=== PATIENT | male | born 1970 | race Caucasian/White ===

== ENCOUNTER 2017-11-29 20:52 | Emergency (ER) | payer MEDICAID ==
--- NOTE | 2017-11-29 21:47 | XRAY Preliminary Report ---
Exam: XR CHEST 2 VIEW X-RAY IMPRESSION: 1. No acute pulmonary process. [facility] SITE ID: [id number]
--- NOTE | 2017-11-29 22:14 | XRAY Report ---
EXAM: CHEST RADIOGRAPHY EXAM DATE: 11/29/2017 09:40 PM. CLINICAL HISTORY: Fever cough. COMPARISON: None. TECHNIQUE: 2 views. FINDINGS: Lungs/Pleura: No focal opacities evident. No pleural effusion. No pneumothorax. Normal volumes. Mediastinum: Heart and mediastinal contours are unremarkable. Other: None. IMPRESSION: 1. No acute pulmonary process. [facility] Referring Provider Line: [phone] SITE ID: [id number]
[2017-11-29] MEDS ORDERED: predniSONE 20 MG TABLET PO STA (22:28)
[2017-11-29] MEDS ORDERED: AZITHROMYCIN 250 MG TABLET PO STA (22:28)
[2017-11-29] MEDS ORDERED: BENZONATATE 100 MG CAPSULE PO STA (22:29)
[2017-11-29] MEDS ORDERED: guaiFENesin/DEXTROMETHORPHAN 10 ML UDC PO STA (22:29)
--- NOTE | 2017-11-29 22:31 | ED Physician Documentation ---
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 denies: Abdominal Pain : denies: Incontinent Neurologic: reports: Numbness. denies: Focal weakness Immunocompromised: denies: Immunocompromised PD PAST MEDICAL HISTORY - Past Medical History Past Medical History: Yes Cardiovascular: Hypertension Endocrine/Autoimmune: Type 2 diabetes Psych: Depression - Past Surgical History Past Surgical History: No - Present Medications Home Medications: Ambulatory Orders Medication Instructions Recorded Confirmed Bupropion HCl [Bupropion HCl Sr] 150 mg PO BID 04/12/14 04/12/14 Ciproflox/Dexameth Otic Drops 4 drops OT BID #1 bottle 04/12/14 [Ciprodex] Levofloxacin [Levaquin] 750 mg PO DAILY 04/12/14 04/12/14 Levofloxacin [Levaquin] 750 mg PO DAILY #7 tablet 04/12/14 Naproxen 500 mg PO BID PRN 04/12/14 04/12/14 Oxycodone HCl/Acetaminophen PRN 04/12/14 04/12/14 [Percocet 5-325 mg Tablet] Oxycodone HCl/Acetaminophen 1 - 2 each PO Q6H PRN #20 tablet 04/12/14 [Percocet 7.5-325 mg Tablet] Simvastatin 20 mg PO DAILY 04/12/14 04/12/14 Azithromycin [Zithromax] 250 mg PO DAILY #4 tablet 11/29/17 Benzonatate [Tessalon] 100 mg PO TID PRN #20 capsule 11/29/17 guaiFENesin/DEXTROMETHORPHAN 10 ml PO Q6H PRN #120 ml 11/29/17 [Robitussin Dm] predniSONE [Deltasone] 40 mg PO DAILY 3 Days tablet 11/29/17 - Allergies Allergies/Adverse Reactions: Allergies Allergy/AdvReac Type Severity Reaction Status Date / Time Penicillins Allergy Unknown Verified 11/29/17 21:04 - Social History Does the pt smoke?: No Smoking Status: Never smoker Does the pt drink ETOH?: No Does the pt have substance abuse?: Yes - POLST Patient has POLST: No PD ED PE NORMAL - Vitals Vital signs reviewed: Yes - Neck Neck: Supple, no meningeal sign - Cardiac Cardiac: RRR - Respiratory Respiratory: No respiratory distress. No: Other (ronchi [place] R > L) - Abdomen Abdomen: Soft, Non tender - Derm Derm: Normal color - Extremities Extremities: No edema - Neuro Neuro: No motor deficit, Other (some dec sensation lateral L thigh, denies saddle anesthesia, rest of legs nl sensory, foot dorsi plantar knee ext hip flexion 5/5, no clounus, neg SLR) Results - Vitals Vitals: Vital Signs - 24 hr 11/29/17 21:03 Temperature 36.7 C Heart Rate 89 Respiratory 18 Rate Blood Pressure 153/109 H O2 Saturation 95 Oxygen O2 Source Room air - Rads (name of study) CXR Radiology: See rad report (neg) PD MEDICAL DECISION MAKING - ED course ED course: neg CXR but exam very suggestive of gerber - will tx some numbness to lateral thigh and worsening of chronic back pain, may have been aggravated by coughing, is diabetic but careful to use clean needles, blood sugars run about 140, spine s focal bony TTP redness swelling warmth, doubt epidural abscess and MRI not available at this time will rx prednisone for airway issues anyway which help relieve sx, if not pt advised to fup PMD to discuss MRI Departure - Departure Disposition: 01 Home, Self Care Clinical Impression: Paresthesia Pneumonia Qualifiers: Pneumonia type: due to unspecified organism Laterality: right Lung location: unspecified part of lung Qualified Code(s): J18.9 - Pneumonia, unspecified organism Condition: Good Instructions: ED Pneumonia Adult Prescriptions: Azithromycin [Zithromax] 250 mg PO DAILY #4 tablet Benzonatate [Tessalon] 100 mg PO TID PRN #20 capsule PRN Reason: to ease cough guaiFENesin/DEXTROMETHORPHAN [Robitussin Dm] 10 ml PO Q6H PRN #120 ml PRN Reason: Cough predniSONE [Deltasone] 40 mg PO DAILY 3 Days tablet Comments: The xray did not show pneumonia but on exam it certainly sounds like you have a right lung pneumonia so I have prescribed antibiotics as well as steroids to decrease the airway inflammation and cough medications The steroids should also help the numbness in your thigh if it is due to sciatica. If the leg symptoms continue, please follow up with your PMD for consideration of a MRI If the symptoms get worse, especially if you have severe back pain or bilateral leg weakness or are unable to urinate normally, please come back to the ER Also the steroids may cause your blood sugar to run a bit high but should return to normal within a few days And please get your blood pressure rechecked - it was high today
[2017-11-29 22:59] VITALS: BP 140/92
== END 2017-11-29 22:59 | disposition home or self-care (01) ==
LOC: ED 20:52
DX: J18.9 Pneumonia, unspecified organism (principal); R20.2 Paresthesia of skin; I10 Essential (primary) hypertension; E11.9 Type 2 diabetes mellitus without complications
CPT/HCPCS: 71046; 99283; A9270; J7512

== ENCOUNTER 2018-04-10 19:00 | Emergency (ER) | payer MEDICAID ==
[2018-04-10 19:25] LABS: BILIRUBIN,URINE NEGATIVE (NEGATIVE); GLUCOSE, URINE (UA) NEGATIVE (NEGATIVE); KETONES,URINE (UA) NEGATIVE (NEGATIVE); LEUKOCYTE ESTERASE, URINE NEGATIVE (NEGATIVE); NITRITE,URINE NEGATIVE (NEGATIVE); OCCULT BLOOD,URINE NEGATIVE (NEGATIVE); PROTEIN,URINE NEGATIVE (NEGATIVE); UROBILINOGEN,URINE 0.2 (NORMAL) E.U./dL (NORMAL)
[2018-04-10 19:37] LABS: CLARITY,URINE CLEAR (CLEAR)
--- NOTE | 2018-04-10 20:35 | Ultrasound Report ---
Reason: Left testicular pain radiating to left groin Procedure Date: 04/10/2018 Accession Number: [id number] / [id number] Procedure: US - Testicle w/Doppler CPT Code: FULL RESULT: EXAM: SCROTAL ULTRASOUND EXAM DATE: 04/10/2018 08:27 PM. CLINICAL HISTORY: Left testicular pain radiating to left groin. COMPARISON: None. TECHNIQUE: Real-time scanning was performed with static images obtained. Both color-flow and Doppler spectral analysis were utilized. FINDINGS: Right: Testis: 4.5 x 3.0 x 2.3 cm. Normal size and echotexture. No mass, calcification, or abnormal blood flow. Epididymis: 3.1 x 0.8 x 0.4 cm. Normal size and echotexture. No mass or abnormal blood flow. Hydrocele: None. Varicocele: None. Left: Testis: 4.3 x 2.8 x 2.2 cm. Normal size and echotexture. No mass, calcification, or abnormal blood flow. Epididymis: 6.1 x 0.8 x 1.1 cm. Given the difficulty of exactly measuring the curvilinear epididymis, note that the volume of the left epididymis approximately 3 times that of the right. There is mild uniform increased vascularity throughout the left epididymis without focal mass lesions. Hydrocele: None. Varicocele: Small. IMPRESSION: 1. No testicular torsion. 2. Enlarged hypervascular left epididymis consistent with epididymitis. 3. Small left varicocele. [facility]
--- NOTE | 2018-04-10 20:43 | ED Physician Documentation ---
PD HPI MALE - Stated complaint Stated Complaint: MALE - Chief complaint Chief Complaint: General - History obtained from History obtained from: Patient - History of Present Illness Timing - onset: Enter time (11:30), Today Timing - details: Gradual onset Pain level now: 4 Similar symptoms before: Has not had sx before Recently seen: Not recently seen Review of Systems Constitutional: reports: Reviewed and negative GI: reports: Reviewed and negative : reports: Testicular pain. denies: Dysuria, Frequency, Testicular mass PD PAST MEDICAL HISTORY - Past Medical History Past Medical History: Yes Cardiovascular: Hypertension Endocrine/Autoimmune: Type 2 diabetes Psych: Depression - Past Surgical History Past Surgical History: No - Present Medications Home Medications: Ambulatory Orders Medication Instructions Recorded Confirmed Bupropion HCl [Bupropion HCl Sr] 150 mg PO BID 04/12/14 04/12/14 Ciproflox/Dexameth Otic Drops 4 drops OT BID #1 bottle 04/12/14 [Ciprodex] Levofloxacin [Levaquin] 750 mg PO DAILY 04/12/14 04/12/14 Levofloxacin [Levaquin] 750 mg PO DAILY #7 tablet 04/12/14 Naproxen 500 mg PO BID PRN 04/12/14 04/12/14 Oxycodone HCl/Acetaminophen PRN 04/12/14 04/12/14 [Percocet 5-325 mg Tablet] Oxycodone HCl/Acetaminophen 1 - 2 each PO Q6H PRN #20 tablet 04/12/14 [Percocet 7.5-325 mg Tablet] Simvastatin 20 mg PO DAILY 04/12/14 04/12/14 Azithromycin [Zithromax] 250 mg PO DAILY #4 tablet 11/29/17 Benzonatate [Tessalon] 100 mg PO TID PRN #20 capsule 11/29/17 guaiFENesin/DEXTROMETHORPHAN 10 ml PO Q6H PRN #120 ml 11/29/17 [Robitussin Dm] predniSONE [Deltasone] 40 mg PO DAILY 3 Days tablet 11/29/17 Levofloxacin [Levaquin] 500 mg PO DAILY #9 tablet 04/10/18 - Allergies Allergies/Adverse Reactions: Allergies Allergy/AdvReac Type Severity Reaction Status Date / Time Penicillins Allergy Unknown Verified 04/10/18 19:07 - Social History Does the pt smoke?: No Smoking Status: Never smoker Does the pt drink ETOH?: No Does the pt have substance abuse?: Yes - POLST Patient has POLST: No PD ED PE NORMAL - Vitals Vital signs reviewed: Yes - General General: Alert and oriented X 3, No acute distress, Well developed/nourished - Abdomen Abdomen: Normal bowel sounds, Soft, Non tender, Non distended - Derm Derm: Normal color, Warm and dry, No rash PD ED PE EXPANDED - Male Male : Normal Exam, Testes descended [place], Normal lie/cremastaric, Tenderness (left testicle, superoposterior). No: Skin lesions, Discharge, Testicular Mass Results - Vitals Vitals: Oxygen O2 Source Room air - Labs Labs: Laboratory Tests 04/10/18 04/10/18 19:12 19:12 Urine Color YELLOW Urine Clarity CLEAR Urine pH 6.0 Ur Specific [place] >=1.030 H Urine Protein NEGATIVE Urine Glucose (UA) NEGATIVE Urine Ketones NEGATIVE Urine Occult Blood NEGATIVE Urine Nitrite NEGATIVE Urine Bilirubin NEGATIVE Urine Urobilinogen 0.2 (NORMAL) Ur Leukocyte Esterase NEGATIVE Ur Microscopic Review NOT INDICATED C.trachomatis RNA (TMA) NOT DETECTED Chlamydia/GC Comment SEE NOTE N.gonorrhoeae RNA (TMA) NOT DETECTED - Rads (name of study) testicular US Radiology: Prelim report reviewed, See rad report PD MEDICAL DECISION MAKING - ED course Complexity details: reviewed results, re-evaluated patient, considered differential, d/w patient - Sepsis Event Vital Signs: Oxygen O2 Source Room air Departure - Departure Disposition: 01 Home, Self Care Clinical Impression: Epididymitis Condition: Good Instructions: ED Epididymitis Prescriptions: Levofloxacin [Levaquin] 500 mg PO DAILY #9 tablet Forms: Activity restrictions Discharge Date/Time: 04/10/18 21:15
[2018-04-10] MEDS ORDERED: levoFLOXacin 250 MG TABLET PO STA (21:00)
[2018-04-10 21:15] VITALS: BP 133/78
== END 2018-04-10 21:15 | disposition home or self-care (01) ==
LOC: ED 19:00
DX: N45.1 Epididymitis (principal); I10 Essential (primary) hypertension; E11.9 Type 2 diabetes mellitus without complications
CPT/HCPCS: 76870; 81003; 87491; 87591; 93975; 99283; A9270; 81001; 87086

== ENCOUNTER 2020-05-03 09:40 | Emergency (ER) | payer MEDICAID ==
[2020-05-03 09:49] VITALS: BP 145/71
[2020-05-03] MEDS ORDERED: SULFAMETH/TRIMETH DS 800/160 MG TABLET PO STA (10:41)
--- NOTE | 2020-05-03 10:43 | ED Physician Documentation ---
History of Present Illness - Stated complaint Stated Complaint: L ARM INJURY - Chief complaint Chief Complaint: General - History obtained from History obtained from: Patient - Additonal information Additional information: Patient comes emergency department complaining of a draining sore on his left inner upper arm. He states this has been going on for about 10 days and has happened before. Patient denies fevers or chills. He states that the wound began to drain yesterday after swelling to the size of a golf ball, and that copious purulent material came out. However, today, the patient has only noticed dark bloody material. He states that he has had many abscesses in the past, but that they usually drain on their own.. No other complaints at this time. Review of Systems Ten Systems: 10 systems reviewed and negative Constitutional: reports: Reviewed and negative. denies: Fever, Chills Eyes: reports: Reviewed and negative Ears: reports: Reviewed and negative Nose: reports: Reviewed and negative Throat: reports: Reviewed and negative Cardiac: reports: Reviewed and negative Respiratory: reports: Reviewed and negative GI: reports: Reviewed and negative : reports: Reviewed and negative Skin: reports: Lesions Musculoskeletal: reports: Reviewed and negative Neurologic: reports: Reviewed and negative Psychiatric: reports: Reviewed and negative Endocrine: reports: Reviewed and negative Immunocompromised: reports: Reviewed and negative PD PAST MEDICAL HISTORY - Past Medical History Cardiovascular: Hypertension Endocrine/Autoimmune: Type 2 diabetes Psych: Depression - Past Surgical History Past Surgical History: No - Present Medications Home Medications: Ambulatory Orders Medication Instructions Recorded Confirmed Ciproflox/Dexameth Otic Drops 4 drops OT BID #1 bottle 04/12/14 [Ciprodex] Levofloxacin [Levaquin] 750 mg PO DAILY 04/12/14 04/12/14 Levofloxacin [Levaquin] 750 mg PO DAILY #7 tablet 04/12/14 Naproxen 500 mg PO BID PRN 04/12/14 04/12/14 Oxycodone HCl/Acetaminophen PRN 04/12/14 04/12/14 [Percocet 5-325 mg Tablet] Oxycodone HCl/Acetaminophen 1 - 2 each PO Q6H PRN #20 tablet 04/12/14 [Percocet 7.5-325 mg Tablet] Simvastatin 20 mg PO DAILY 04/12/14 04/12/14 buPROPion HCl [Bupropion HCl Sr] 150 mg PO BID 04/12/14 04/12/14 Azithromycin [Zithromax] 250 mg PO DAILY #4 tablet 11/29/17 Benzonatate [Tessalon] 100 mg PO TID PRN #20 capsule 11/29/17 guaiFENesin/DEXTROMETHORPHAN 10 ml PO Q6H PRN #120 ml 11/29/17 [Robitussin Dm] predniSONE [Deltasone] 40 mg PO DAILY 3 Days tablet 11/29/17 Levofloxacin [Levaquin] 500 mg PO DAILY #9 tablet 04/10/18 Sulfamethox/Trimeth 800/160 1 each PO BID #14 tablet 05/03/20 [Bactrim Ds 800/160] - Allergies Allergies/Adverse Reactions: Allergies Allergy/AdvReac Type Severity Reaction Status Date / Time Penicillins Allergy Unknown Verified 05/03/20 09:49 - Social History Does the pt smoke?: No Smoking Status: Never smoker Does the pt drink ETOH?: No Does the pt have substance abuse?: Yes - POLST Patient has POLST: No PD ED PE NORMAL - Vitals Vital signs reviewed: Yes - General General: Alert and oriented X 3, No acute distress, Other (Morbidly obese) - HEENT HEENT: Atraumatic, PERRL, EOMI, Moist mucous membranes - Neck Neck: Supple, no meningeal sign - Respiratory Respiratory: No respiratory distress - Derm Derm: Warm and dry, Other (4 cm diameter indurated area with flaccid skin overlying and palpable cavity. 2 draining wounds approximately 5 mm in diameter each are located over the flaccid skin, with dark, bloody material expressible. Minimal to no purulence. 1 cm rim of erythema extends past the indurated area.) - Extremities Extremities: No deformity, No edema - Neuro Neuro: Alert and oriented X 3 - Psych Psych: Normal mood, Normal affect Results - Vitals Vitals: Vital Signs - 24 hr 05/03/20 09:42 Temperature 37.1 C Heart Rate 86 Respiratory 16 Rate Blood Pressure 145/71 H O2 Saturation 99 Oxygen O2 Source Room air PD MEDICAL DECISION MAKING - ED course Complexity details: considered differential, d/w patient ED course: I discussed with the patient that we could apply a topical anesthetic and I&D the area and rinse it out with saline and apply packing. However, the wound is also draining very well on its own and does not seem to have any further purulent material today. As such, the patient may actually do quite well with just antibiotic treatment. I have offered him either one, with the caveat that if he does antibiotic treatment and things do not get better, then he may need to have I&D. Patient would like to try antibiotic therapy only first. He has been given a dose of Bactrim here in the emergency department today. We have discussed home management and symptoms, including the need for hot packing, as well as the usual indications for return. Departure - Departure Disposition: Home, Self Care Clinical Impression: Abscess Condition: Stable Instructions: ED Staph Infec Abx Tx Only Prescriptions: Sulfamethox/Trimeth 800/160 [Bactrim Ds 800/160] 1 each PO BID #14 tablet Comments: There is no pus coming out of the abscess at this time. Only dark blood is able to be expressed from the wound, and there is minimal evidence of infection surrounding the immediate area of the abscess. As such, it is reasonable to treat with antibiotics and have you hot pack at home. You will be placed on antibiotics for a total of 1 week. Please take them every day as directed until gone.
== END 2020-05-03 10:51 | disposition home or self-care (01) ==
LOC: ED 09:40
DX: L02.414 Cutaneous abscess of left upper limb (principal); I10 Essential (primary) hypertension; E11.9 Type 2 diabetes mellitus without complications; E66.01 Morbid (severe) obesity due to excess calories; Z68.42 Body mass index [BMI] 45.0-49.9, adult
CPT/HCPCS: 99282; 99284; A9270

== ENCOUNTER 2022-07-25 11:22 | Outpatient (CLI) | payer MEDICAID ==
[2022-07-25] MEDS ORDERED: iohexoL-240 10 ML VIAL IVP ONE ×2 (11:53→13:52)
[2022-07-25] MEDS ORDERED: LIDOCAINE-MPF 1% 5 ML VIAL ONE ×2 (11:54→13:23)
[2022-07-25] MEDS ORDERED: GADOBUTROL 10 MMOL/10 ML VIAL ONE (11:54)
[2022-07-25] MEDS ORDERED: LIDOCAINE-MPF 1% 5 ML VIAL TD ONE (13:53)
[2022-07-25] MEDS ORDERED: GADOBUTROL 10 MMOL/10 ML VIAL IVP ONE (13:55)
--- NOTE | 2022-07-25 14:04 | XRAY Report ---
PROCEDURE: Arthrogram Needle Placement INDICATIONS: PAIN IN RIGHT SHOULDER CONTRAST: Gadolinium TECHNIQUE: The indications, alternatives, benefits, risks, and complications of the procedure were explained to the patient. Written informed consent was obtained and placed in the chart. The shoulder was examin ed fluoroscopically and a site for needle placement chosen for entry into the glenohumeral joint from an anterior approach. The skin was prepped and draped in the usual fashion, and 1% lidocaine infilt rated from skin down to joint capsule. A spinal needle was inserted into the glenohumeral joint, and a small amount of iodinated contrast media injected to confirm intra-articular placement of the need le tip. This was followed by approximately 12 mL dilute solution of a gadolinium containing MR contr ast agent. The needle was removed and a dressing was applied. The patient was given postprocedural instructions and sent to the MR suite for MR imaging. FINDINGS: A single fluoroscopic spot image demonstrates intra-articular location of injected iodinated contrast . IMPRESSION: Successful fluoroscopically guided administration of dilute Gadolinium solution into the shoulder daniel sauer for MR arthrogram. Reviewed by: Sushila Payan MD on 07/25/2022 2:02 PM PST Approved by: Sushila Payan MD on 07/25/2022 2:02 PM PST Station ID: [id number]
--- NOTE | 2022-07-25 17:43 | MRI Report ---
PROCEDURE: ARTHROGRAM SHOULDER - RT INDICATIONS: PAIN IN RIGHT SHOULDER TECHNIQUE: After the administration of 12 mL of dilute intra-articular Gadolinium contrast, oblique coronal T1 a nd T2 spin echo with fat saturation, oblique sagittal T1 spin echo with and without fat saturation, o blique sagittal T2 fast spin echo with fat saturation, axial T1 spin echo with fat saturation through the shoulder. COMPARISON: Shoulder radiograph dated 01/04/2020 to. FINDINGS: Image quality: Excellent. Rotator cuff: Full-thickness rupture of distal supraspinatus at its insertion on humeral head is see n with up to 3.4 cm medial retraction of torn tendon fibers to the level of acromioclavicular joint. Moderate grade articular surface partial-thickness tear involving distal infraspinatus at its inserti on on humeral head is seen extending to muscular tendinous junction. Distal subscapularis tendinosis is also seen. Moderate supraspinatus muscle atrophy is seen on sagittal images. Bones and bursae: There is moderate acromioclavicular joint osteoarthritis with joint space narrowing , subchondral sclerosis and downward osteophyte formation depressing on musculotendinous junction of supraspinatus. Superior migration of humeral head in relation to glenoid is seen. Mild to moderate gl enohumeral joint osteoarthritic changes also noted with joint space narrowing and subchondral scleros is. No acute fracture or dislocation. Capsule and soft tissues: There is signal abnormality and contour irregularity involving anterior inf erior labrum at 4 to 6:00 position. The glenohumeral ligaments appear intact. The long head of the b iceps tendon demonstrates normal location and morphology. The rotator interval appears normal, witho ut fibrosis. The coracohumeral ligament is of normal thickness. No intra-articular bodies. IMPRESSION: 1. Full-thickness rupture of distal supraspinatus at its insertion on humeral head with up to 3.4 cm medial retraction of torn tendon fibers to the level of acromioclavicular joint. Moderate supraspinat us muscle atrophy. 2. Moderate grade articular surface partial-thickness tear involving distal supraspinatus extending t o muscular tendinous junction. Distal subscapularis tendinosis. 3. Moderate acromioclavicular joint osteoarthritis and mild to moderate glenohumeral joint osseous ar thritis. No acute fracture or dislocation. No gross intra-articular loose bodies. 4. Suggestion of anterior inferior labral tear at 4 to 6:00 position. Reviewed by: Kadeem Coronado MD on 07/25/2022 5:41 PM PST Approved by: Kadeem Coronado MD on 07/25/2022 5:41 PM PST Station ID: [id number]
== END 2022-07-25 11:23 | disposition home or self-care (01) ==
LOC: DI 11:22
PROVIDERS: ATTEND Physician Assistant Surgical
DX: M75.121 Complete rotator cuff tear or rupture of right shoulder, not specified as traumatic (principal); M19.011 Primary osteoarthritis, right shoulder
CPT/HCPCS: 23350; 73222; 77002; A9585; Q9966

== ENCOUNTER 2024-03-12 09:49 | Outpatient (CLI) | payer MEDICAID ==
--- NOTE | 2024-03-12 18:31 | XRAY Report ---
Shoulder 2+V BL HISTORY: 53 years of age, BILATERAL SHOULDER PAIN TECHNIQUE: Shoulder 2+V BL COMPARISON: Right shoulder radiograph on 02/02/2022. FINDINGS/IMPRESSION: Right shoulder: Small ossification about the acromioclavicular joint, representing prior injury. Join t space of the acromial clavicular joint is grossly well maintained. Mild degenerative change of the glenohumeral joint. Narrowing of the subacromial interval, concerning for rotator cuff pathology. No acute fracture or dislocation. Left shoulder: Large ossification about the acromioclavicular joint, representing prior injury. Mild degenerative changes of the glenohumeral joint. No acute fracture or dislocation. Reviewed by: Sunni Pascual MD on 03/12/2024 6:30 PM PDT Approved by: Sunni Pascual MD on 03/12/2024 6:30 PM PDT Station ID: [id number]
--- NOTE | 2024-03-13 13:01 | XRAY Report ---
PROCEDURE: Ankle 3+V RT INDICATIONS: RIGHT ANKLE PAIN TECHNIQUE: 3 views of the ankle were acquired. COMPARISON: None FINDINGS: Bones: No fractures or dislocations. Ankle mortise is normally aligned. No suspicious bony lesions . Soft tissues: Unremarkable without significant soft tissue swelling. No radiopaque foreign body. IMPRESSION: Mild joint space narrowing and arthritic changes. Anterior osteophyte at the tibiotalar joint tip. Sm all vessel atherosclerotic vascular calcification Reviewed by: Aris Robert MD on 03/13/2024 12:00 PM AKDT Approved by: Aris Robert MD on 03/13/2024 12:00 PM AKDT Station ID: [id number]
== END 2024-03-12 09:50 | disposition home or self-care (01) ==
LOC: DI 09:49
PROVIDERS: ATTEND Orthopaedic Surgery
DX: M19.071 Primary osteoarthritis, right ankle and foot (principal); M25.771 Osteophyte, right ankle

== ENCOUNTER 2024-04-02 08:10 | Outpatient (CLI) | payer MEDICAID ==
--- NOTE | 2024-04-02 10:35 | MRI Report ---
PROCEDURE: Shoulder RT WO INDICATIONS: R AND L ROTATOR TEAR TECHNIQUE: Noncontrast oblique coronal T2 fast spin echo with fat saturation, oblique sagittal T1 spin echo and T2 fast spin echo with fat saturation, axial T1 spin echo and T2 fast spin echo with fat saturation t hrough the shoulder. COMPARISON: Plain films dated 03/12/2024. FINDINGS: Image quality: Excellent. Rotator cuff: There is full-thickness tearing of the entire supraspinatus tendon, with medial retract ion and mild atrophy of the supraspinatus. There is low-grade articular surface tearing of the anteri or infraspinatus tendon at the humeral insertion site. Subscapularis tendon demonstrates low-grade ar ticular surface tearing of its midportion at the humeral insertion site. Teres minor is intact. Bones and bursae: No bone marrow contusions or fractures. There is mild glenohumeral and acromioclav icular joint degeneration. The acromion demonstrates conventional anatomy, without an os acromiale. No pathologic subacromial/subdeltoid bursal fluid is present. Capsule and soft tissues: In the absence of intra-articular contrast, the labrum and glenohumeral li gaments appear intact. The long head of the biceps tendon demonstrates normal location and morpholog y. The rotator interval appears normal, without fibrosis. The coracohumeral ligament is normal in t hickness. IMPRESSION: 1. Full-thickness tearing and atrophy of the supraspinatus tendon. 2. Low-grade tearing of the infraspinatus and subscapularis tendons. 3. Acromioclavicular and glenohumeral joint osteoarthritis. Reviewed by: Jaleesa Leal MD on 04/02/2024 10:34 AM PDT Approved by: Jaleesa Leal MD on 04/02/2024 10:34 AM PDT Station ID: [id number]
--- NOTE | 2024-04-02 10:42 | MRI Report ---
PROCEDURE: Shoulder LT WO INDICATIONS: L ROTATOR TEAR TECHNIQUE: Noncontrast oblique coronal T2 fast spin echo with fat saturation, oblique sagittal T1 spin echo and T2 fast spin echo with fat saturation, axial T1 spin echo and T2 fast spin echo with fat saturation t hrough the shoulder. COMPARISON: 03/12/2024 FINDINGS: Image quality: Excellent. Rotator cuff: Mild T2 signal elevation diffusely throughout the supraspinatus and infraspinatus tendo ns at the humeral insertion sites extending the muscular tendinous junction, indicating tendinopathy. There is superimposed high-grade transversely oriented tearing of the mid/anterior supraspinatus ten don at the humeral insertion site extending the muscular tendinous junction, measuring roughly 10 mm anteroposterior. There is low-grade articular surface tearing of the anterior, and mid infraspinatus tendon at the humeral insertion site extending the muscular tendinous junction. Low-grade intrasubsta nce tearing of the upper, mid, and inferior scapularis tendon at the humeral insertion site extending the muscular tendinous junction. Teres minor tendon is intact. Bones and bursae: No bone marrow contusions or fractures. Moderate glenohumeral and acromioclavicula r joint degeneration. The acromion demonstrates conventional anatomy, without an os acromiale. No p athologic subacromial/subdeltoid bursal fluid is present. Capsule and soft tissues: There is undercutting of the anterior and posterior inferior labrum. Diffus e degenerative glenoid labral fraying is present. The long head of the biceps tendon demonstrates nor mal location and morphology. The rotator interval appears normal, without fibrosis. The coracohumer al ligament is normal in thickness. IMPRESSION: 1. Supraspinatus infraspinatus tendinopathy with superimposed partial thickness tearing as above. 2. Partial-thickness tearing of the subscapularis tendon. 3. Acromioclavicular and glenohumeral joint osteoarthritis. 4. Glenoid labral tearing. Reviewed by: Jaleesa Leal MD on 04/02/2024 10:41 AM PDT Approved by: Jaleesa Leal MD on 04/02/2024 10:41 AM PDT Station ID: [id number]
== END 2024-04-02 08:11 | disposition home or self-care (01) ==
LOC: DI 08:10
PROVIDERS: ATTEND Orthopaedic Surgery
DX: M75.112 Incomplete rotator cuff tear or rupture of left shoulder, not specified as traumatic (principal); M19.012 Primary osteoarthritis, left shoulder; S43.492A Other sprain of left shoulder joint, initial encounter; M75.121 Complete rotator cuff tear or rupture of right shoulder, not specified as traumatic; M19.011 Primary osteoarthritis, right shoulder